=== PATIENT | male | born 1985 | race Caucasian/White ===

== ENCOUNTER 2021-04-18 15:07 | Emergency (ER) | payer OTHER, SELFPAY ==
[2021-04-18 15:13] VITALS: BP 145/106; PULSE 83; RESP 18; TEMP 36.6; O2SAT 97; BMI 43.7
--- NOTE | 2021-04-18 15:15 | DI.RAD.S_ITS ---
PROCEDURE: XR CHEST 1V INDICATIONS: chest pain TECHNIQUE: One view of the chest was acquired. COMPARISON: None. FINDINGS: Surgical changes and devices: None. Lungs and pleura: Lungs are clear. No pleural effusions or pneumothorax. Mediastinum: Mediastinal contours appear normal. Heart size is normal. Bones and chest wall: No suspicious bony lesions. Overlying soft tissues appear unremarkable. IMPRESSION: No acute cardiopulmonary abnormalities or focal airspace disease. Dictated by: Tray Earl M.D. on 04/18/2021 at 15:53 Approved by: Tary Earl M.D. on 04/18/2021 at 15:54
[2021-04-18 15:33] VITALS: BP 147/102; PULSE 76; RESP 19; O2SAT 98
[2021-04-18 15:38] LABS: Add Manual Diff / Slide Review NO; Basophils Absolute Auto 0 /uL (0-100); Basophils Percent Auto 0.6 % (0-2); Eosinophils Absolute Auto 100 /uL (0-450); Eosinophils Percent Auto 1.8 % (2-4); Hematocrit 42.6 % (41-53); Hemoglobin 14.8 g/dL (13.5-17.5); Lymphocytes Absolute Auto 2000 /uL (1100-4500); Lymphocytes Percent Auto 32.8 % (25-40); Mean Corpuscular HGB Conc 34.8 % (30-36); Mean Corpuscular Hemoglobin 31.2 PG (26-34); Mean Corpuscular Volume 89.5 fL (80-100); Monocytes Absolute Auto 500 /uL (0-900); Monocytes Percent Auto 7.8 % (3-14); Neutrophils Absolute Auto 3400 /uL (1500-7000); Platelet Count 278 X10^3/uL (150-400); Red Blood Cell Count 4.76 X10^6/uL (4.5-5.9); Red Cell Distribution Width 13.1 % (11.6-14.8)
--- NOTE | 2021-04-18 15:47 | ED_ITS ---
HPI - Chest Pain <Torrey Judd PA-C - Last Filed: 04/18/21 19:27> General Chief Complaint: Chest Pain Stated Complaint: chest pain, high blood pressure Time Seen by Provider: 04/18/21 15:13 Source: patient Mode of arrival: Ambulatory Limitations: no limitations History of Present Illness HPI narrative: The patient is a 35-year-old male presenting to the emergency department today for evaluation of chest pain. Patient states that he flew up from [facility] on Thursday noting that it was approximately a 3 hour flight. He states that the next day he began to experience epigastric abdominal pain that began to creep up into his chest. He states that he also began to experience symptoms that he described as ?tingling in the T? that he believes was associated with elevated blood pressure. He explains that he also began to experience of fluttering sensation in his chest on Thursday. Patient presents today stating that the pain that he feels in his chest has not yet gone away and he is concerned that his blood pressure is still elevated. Of note, patient states he takes hydrochlorothiazide for his blood pressure. Additionally, he notes that he takes gabapentin and has been routinely taking it at the same time over the past few days. He explains that he believes the pain he is experiencing may be related to taking his gabapentin at the same time every day. Patient denies fever, chills, cough, nausea, vomiting, diarrhea, numbness or tingling in the upper extremities, jaw pain, neck pain, diaphoresis, changes in vision, changes in hearing, or any other concerning symptoms. No other concerns reports that this time. Patient notes that pain in his chest seems to be worse 1st thing in the morning when he wakes up. Patient explains that he has also been experiencing increased stress that he attributes to family. Related Data Previous Rx's Medication Instructions Recorded omeprazole 20 mg capsule,delayed 20 mg PO DAILY #20 cap 04/18/21 release Allergies Allergy/AdvReac Type Severity Reaction Status Date / Time No Known Drug Allergies Allergy Verified 04/18/21 15:12 Review of Systems <Torrey Judd PA-C - Last Filed: 04/18/21 19:27> Constitutional Constitutional: Denies chills, Denies fatigue, Denies fever(s), Denies frequent falls, Denies lethargy and Denies weakness Eyes Eyes: Denies change in vision, Denies eye discharge, Denies irritation and Denies loss of vision ENT Ears, Nose, Mouth, and Throat: Denies change in voice, Denies dizziness, Denies neck pain, Denies sore throat and Denies throat swelling Cardiovascular Cardiovascular: Reports chest pain, Denies irregular heart rhythm, Denies lightheadedness, Denies palpitations, Reports dyspnea, Denies dyspnea on exertion, Denies orthopnea and Reports other (Elevated blood pressure) Respiratory Respiratory: Denies cough, Reports dyspnea, Denies dyspnea on exertion and Denies wheezing Gastrointestinal Gastrointestinal: Reports abdominal pain, Denies change in bowel habits, Denies diarrhea, Denies nausea and Denies vomiting Genitourinary Genitourinary: Denies hematuria, Denies flank pain, Denies urinary incontinence and Denies urinary urgency Musculoskeletal Musculoskeletal: Denies back pain, Denies muscle weakness, Denies neck pain, Denies numbness and Denies tingling Integumentary/Breasts Skin/Breast: Denies pruritus, Denies erythema, Denies rash and Denies wounds Neurologic Neurologic: Denies behavioral changes, Denies confusion, Denies dizziness, Denies frequent falls, Denies loss of vision, Denies numbness, Denies tingling and Denies weakness Psychiatric Psychiatric: Denies behavioral changes and Denies confusion Endocrine Endocrine: Denies fatigue and Denies palpitations Allergic/Immunologic Allergic/Immunologic: Denies throat swelling and Denies wheezing Patient History <Torrey Judd PA-C - Last Filed: 04/18/21 19:27> Social History Smoking Status: Never smoker Smoking Status: Never smoker Substance Use Type: does not use Exam <Torrey Judd PA-C - Last Filed: 04/18/21 19:27> Narrative Exam Narrative: GENERAL: 35 year old patient appears stated age. Well-developed patient, in mild distress. Large body habitus HEAD: Atraumatic. Normocephalic. EYES: Pupils equal round and reactive. Extraocular motions intact. No scleral icterus. No injection or drainage. ENT: Nose without bleeding, purulent drainage. Throat without erythema, tonsillar hypertrophy or exudate. Airway patent. NECK: Trachea midline. Non tender CARDIOVASCULAR: Regular rate and rhythm without murmurs, gallops, or rubs. RESPIRATORY: Clear to auscultation. Breath sounds equal bilaterally. No wheezes, rales, or rhonchi. GASTROINTESTINAL: Abdomen soft, non-tender, nondistended. EXTREMITIES: No edema or joint tenderness. BACK: Nontender without deformity or crepitance. No flank tenderness. NEURO: AOx3. SKIN: No rash or erythema of visible areas Initial Vital Signs Initial Vital Signs: Vital Signs Temperature 97.8 F 04/18/21 15:13 Pulse Rate 83 04/18/21 15:13 Respiratory Rate 18 04/18/21 15:13 Blood Pressure 145/106 H 04/18/21 15:13 Pulse Oximetry 97 04/18/21 15:13 <Ibrahima Bernard DO - Last Filed: 04/20/21 14:04> Initial Vital Signs Initial Vital Signs: Vital Signs Temperature 97.8 F 04/18/21 15:13 Pulse Rate 83 04/18/21 15:13 Respiratory Rate 18 04/18/21 15:13 Blood Pressure 145/106 H 04/18/21 15:13 Pulse Oximetry 97 04/18/21 15:13 Course <Torrey Judd PA-C - Last Filed: 04/18/21 19:27> Course Course Narrative: CBC, CMP, lipase, magnesium, troponin, chest x-ray, EKG ordered. 20 mg of Protonix administered. Orders Ordered: Discontinued Medications Pantoprazole Sodium (Pantoprazole Dr 20 Mg Tablet) 20 mg PO NOW ONE Stop: 04/18/21 15:44 Last Admin: 04/18/21 15:59 Dose: 20 mg Documented by: SENA Vital Signs Vital signs: Vital Signs - 8 hr 04/18/21 15:13 04/18/21 15:33 Temperature 97.8 F Pulse Rate 83 76 Respiratory Rate 18 19 Blood Pressure 145/106 H 147/102 H Pulse Oximetry 97 98 <Ibrahima Bernard DO - Last Filed: 04/20/21 14:04> Orders Ordered: Discontinued Medications Pantoprazole Sodium (Pantoprazole Dr 20 Mg Tablet) 20 mg PO NOW ONE Stop: 04/18/21 15:44 Last Admin: 04/18/21 15:59 Dose: 20 mg Documented by: SENA Vital Signs Vital signs: Vital Signs - 8 hr 04/18/21 15:13 04/18/21 15:33 Temperature 97.8 F Pulse Rate 83 76 Respiratory Rate 18 19 Blood Pressure 145/106 H 147/102 H Pulse Oximetry 97 98 MDM - Chest Pain <Torrey Judd PA-C - Last Filed: 04/18/21 19:27> Lab Data Result diagrams: 04/18/21 15:35 04/18/21 15:35 Labs: Lab Results 04/18/21 04/18/21 Range/Units 15:35 15:35 WBC 6.0 (4.5-11.0) X10^3/uL RBC 4.76 (4.5-5.9) X10^6/uL Hgb 14.8 (13.5-17.5) g/dL Hct 42.6 (41-53) % MCV 89.5 (80-100) fL MCH 31.2 (26-34) PG MCHC 34.8 (30-36) % RDW 13.1 (11.6-14.8) % Plt Count 278 (150-400) X10^3/uL Neut % (Auto) 57.0 (50-75) % Lymph % (Auto) 32.8 (25-40) % [place] % (Auto) 7.8 (3-14) % Eos % (Auto) 1.8 L (2-4) % Baso % (Auto) 0.6 (0-2) % Neut # (Auto) 3400 (0365-8809) /uL Lymph # (Auto) 2000 (5248-9237) /uL [place] # (Auto) 500 (0-900) /uL Eos # (Auto) 100 (0-450) /uL Baso # (Auto) 0 (0-100) /uL Sodium 138 (137-145) mmol/L Potassium 3.8 (3.4-5.1) mmol/L Chloride 104 (98-107) mmol/L Carbon Dioxide 27 (22-32) mmol/L BUN 9 (9-20) mg/dL Creatinine 0.95 (0.66-1.25) mg/dL Estimated GFR > 60.0 (>60) mL/min BUN/Creatinine Ratio 9.5 (6-22) Glucose 98 (70-100) mg/dL Calcium 9.5 (8.4-10.2) mg/dL Magnesium 2.1 (1.6-2.3) mg/dL Total Bilirubin 0.8 (0.2-1.3) mg/dL AST 67 H (17-59) IU/L ALT 104 H (<50) IU/L Alkaline Phosphatase 72 (38-126) U/L Total Creatine Kinase 106 (55-170) U/L CK-MB (CK-2) 0.25 (<2.37) ng/mL CK-MB (CK-2) Rel Index 0.2 L (1.5-5.0) % Troponin I < 0.012 (0.01-0.034) ng/mL Total Protein 7.9 (6.3-8.2) g/dL Albumin 4.8 (3.5-5.0) g/dL Globulin 3.1 (1.7-4.1) g/dL Albumin/Globulin Ratio 1.5 (1.0-2.8) Lipase 95 (23-300) U/L Imaging Data Chest x-ray: Radiologist's Impression: PROCEDURE:? XR CHEST 1V ? INDICATIONS:? chest pain ? TECHNIQUE:? One view of the chest was acquired.? ? COMPARISON:? None. ? FINDINGS:? ? Surgical changes and devices:? None.? ? Lungs and pleura:? Lungs are clear.? No pleural effusions or pneumothorax.? ? Mediastinum:? Mediastinal contours appear normal.? Heart size is normal.? ? Bones and chest wall:? No suspicious bony lesions.? Overlying soft tissues appear unremarkable.? ? IMPRESSION:? No acute cardiopulmonary abnormalities or focal airspace disease. ? Dictated by: Tray Earl M.D. on 04/18/2021 at 15:53 ? ? Approved by: Tray Earl M.D. on 04/18/2021 at 15:54 ? ECG Data Interpretation: Ventricular rate of 77 beats per minute, [place] interval of 134 ms, normal sinus rhythm MDM Narrative Medical decision making narrative: To consider myocardial infarction versus acute coronary syndrome versus gastroesophageal reflux disease versus costochondritis versus musculoskeletal chest pain versus anxiety. Overall physical examination, history, labs, and imaging are reassuring. Discussed results of lab work and imaging studies in the emergency department today with patient. Recommend the patient begin a course of proton pump inhibitor medications to help alleviate his symptoms of chest pain in the morning. Patient agrees to plan and feels comfortable being discharged home. Strict return precautions were discussed with the patient prior to discharge. <Ibrahima Bernard DO - Last Filed: 04/20/21 14:04> Lab Data Labs: Lab Results 04/18/21 04/18/21 Range/Units 15:35 15:35 WBC 6.0 (4.5-11.0) X10^3/uL RBC 4.76 (4.5-5.9) X10^6/uL Hgb 14.8 (13.5-17.5) g/dL Hct 42.6 (41-53) % MCV 89.5 (80-100) fL MCH 31.2 (26-34) PG MCHC 34.8 (30-36) % RDW 13.1 (11.6-14.8) % Plt Count 278 (150-400) X10^3/uL Neut % (Auto) 57.0 (50-75) % Lymph % (Auto) 32.8 (25-40) % [place] % (Auto) 7.8 (3-14) % Eos % (Auto) 1.8 L (2-4) % Baso % (Auto) 0.6 (0-2) % Neut # (Auto) 3400 (4546-5888) /uL Lymph # (Auto) 2000 (0755-3297) /uL [place] # (Auto) 500 (0-900) /uL Eos # (Auto) 100 (0-450) /uL Baso # (Auto) 0 (0-100) /uL Sodium 138 (137-145) mmol/L Potassium 3.8 (3.4-5.1) mmol/L Chloride 104 (98-107) mmol/L Carbon Dioxide 27 (22-32) mmol/L BUN 9 (9-20) mg/dL Creatinine 0.95 (0.66-1.25) mg/dL Estimated GFR > 60.0 (>60) mL/min BUN/Creatinine Ratio 9.5 (6-22) Glucose 98 (70-100) mg/dL Calcium 9.5 (8.4-10.2) mg/dL Magnesium 2.1 (1.6-2.3) mg/dL Total Bilirubin 0.8 (0.2-1.3) mg/dL AST 67 H (17-59) IU/L ALT 104 H (<50) IU/L Alkaline Phosphatase 72 (38-126) U/L Total Creatine Kinase 106 (55-170) U/L CK-MB (CK-2) 0.25 (<2.37) ng/mL CK-MB (CK-2) Rel Index 0.2 L (1.5-5.0) % Troponin I < 0.012 (0.01-0.034) ng/mL Total Protein 7.9 (6.3-8.2) g/dL Albumin 4.8 (3.5-5.0) g/dL Globulin 3.1 (1.7-4.1) g/dL Albumin/Globulin Ratio 1.5 (1.0-2.8) Lipase 95 (23-300) U/L Discharge Plan Departure Patient Disposition: Home Clinical Impression: Chest pain due to GERD Instructions: DI for Gastroesophageal Reflux Disease (GERD) Activity Restrictions/Additional Instructions: *You have been diagnosed with gastroesophageal reflux disease *What to do: *Please continue to take your regular medications as directed. [X] New medication prescriptions sent to your pharmacy: Aundrea Lehman - omeprazole [ ] New medication written as a paper prescription [ ] No new medications given *Please follow up with your primary care provider in 2-3 days, call for an appointment. Let them know you were seen in the Emergency Department and that we ask that you be seen in follow up. We will electronically transmit a record of today's note if your PCP is in our system *If you do not have a primary care provider please contact the [facility] Resource line at [phone]. They will ask some questions about your medical history and help get you set up with a doctor in the community. *Return to Emergency Department if you should have any new, worsening or concerning symptoms, such as fever greater than 101 F, shaking chills, worsening pain, persistent vomiting or other bothersome symptoms Prescriptions: New omeprazole 20 mg capsule,delayed release(DR/EC) 20 mg PO DAILY Qty: 20 0RF Referrals: Miscellaneous,[facility] [Primary Care Provider] - <Ibrahima Bernard DO - Last Filed: 04/20/21 14:04> Cosign ED Attending Abdi Attestation: I was immediately available in the department for consultation. This documentation has been reviewed and I agree with assessment and plan. Supervised by Ibrahima Bernard, DO
[2021-04-18 15:53] LABS: Alanine Aminotransferase 104 IU/L (<50); Albumin 4.8 g/dL (3.5-5.0); Albumin Globulin Ratio 1.5 (1.0-2.8); Alkaline Phosphatase 72 U/L (38-126); Aspartate Aminotransferase 67 IU/L (17-59); BUN Creatinine Ratio 9.5 (6-22); Bilirubin Total 0.8 mg/dL (0.2-1.3); Blood Urea Nitrogen 9 mg/dL (9-20); Calcium 9.5 mg/dL (8.4-10.2); Carbon Dioxide 27 mmol/L (22-32); Chloride 104 mmol/L (98-107); Creatine Kinase 106 U/L (55-170); Estimated Glomerular Filt Rate > 60.0 mL/min (>60); Globulin 3.1 g/dL (1.7-4.1); Glucose 98 mg/dL (70-100); HEMOLYSIS < 15 (0-50); Lipase 95 U/L (23-300); Magnesium 2.1 mg/dL (1.6-2.3); Potassium 3.8 mmol/L (3.4-5.1); Sodium 138 mmol/L (137-145); Total Protein 7.9 g/dL (6.3-8.2)
[2021-04-18] MEDS: PANTOPRAZOLE DR 20 MG TABLET PO (15:59)
[2021-04-18 16:04] LABS: Troponin I < 0.012 ng/mL (0.01-0.034)
[2021-04-18 16:07] LABS: CKMB % Relative Index 0.2 % (1.5-5.0); Creatine Kinase MB 0.25 ng/mL (<2.37)
== END 2021-04-18 16:56 | disposition home or self-care (01) ==
PROVIDERS: Emergency Provider Physician Assistant
DX: K21.9 Gastro-esophageal reflux disease without esophagitis (principal); R03.0 Elevated blood-pressure reading, without diagnosis of hypertension
CPT/HCPCS: 36415; 71045; 80053; 82550; 82553; 83690; 83735; 84484; 85025; 93005; 99284